=== PATIENT | male | born 1990 | race Caucasian/White ===

== ENCOUNTER 2016-08-18 20:28 | Emergency (ER) | payer MEDICAID, OTHER ==
[~2016-08-18] VITALS: Ht 182.9 cm; Wt 103.3 kg
[~2016-08-18 20:28] MED LIST: ALBU8I INH; BENZ100 PO; LORA10TA PO; PRED50 PO
[2016-08-18 20:35] VITALS: BP 136/97; PULSE 111; RESP 18; TEMP 98.4; O2SAT 96
--- NOTE | 2016-08-18 20:51 | PD ---
HPI Chief Complaint: Cold / Flu Symptoms Time Seen by Provider: 20:51 Travel History International Travel<30 days: No Contact w/Intl Traveler<30days: No Traveled to known affect area: No History of Present Illness HPI 26-year-old male presents the emergency Department with sudden onset head congestion, sore throat, postnasal drip, posttussive emesis 1, and chest congestion and wheezing and shortness of breath. Patient states he felt fine yesterday but today scattered all symptoms as stated. Patient has had chills but denies specific fever. Patient has no nausea decreased appetite and one episode of emesis of thick mucus. Patient states his cough is productive of yellow-green sputum. Patient also states head congestion and headache with pressure behind both eyes. Throat is sore with postnasal drip noted. Patient is a smoker relates pack of cigarettes per day. He has no known drug allergies. PFSH Past Medical History Asthma: No Cardiovascular Problems: No Neurologic: No Respiratory: No Influenza Vaccination: No Social History Alcohol Use: No Tobacco Use: Yes (1 06/25 ppd) Substance Use: No Allergies-Medications (Allergen,Severity, Reaction): Coded Allergies: No Known Allergies (Verified , 08/18/16) Reported Meds & Prescriptions Reported Meds & Active Scripts Active No Active Prescriptions or Reported Medications Review of Systems Except as stated in HPI: all other systems reviewed are Neg General / Constitutional: Positive: Chills, No: Fever Eyes: No: Visual changes HENT: Positive: Headaches, Sore Throat, Rhinitis, Rhinorrhea, Congestion, No: Nosebleed, Neck Stiffness, Neck Pain, Gingival Bleeding, Dental Difficulties, Ear Discharge, Earache Cardiovascular: Positive: Chest Pain or Discomfort Respiratory: Positive: Cough, Shortness of Breath, Wheezing, No: Sneezing, Orthopnea, Hemoptysis, Stridor, Night Sweats, Pleuritic Pain Gastrointestinal: Positive: Vomiting, No: Nausea, Diarrhea, Abdominal Pain Genitourinary: No: Dysuria Musculoskeletal: No: Pain Skin: No Rash Neurologic: No: Weakness Psychiatric: No: Depression Endocrine: No: Polydipsia Hematologic/Lymphatic: No: Easy Bruising Physical Exam Narrative GENERAL: Patient appears in no acute distress. Patient does appear ill but not septic. SKIN: Warm and dry. Mild pallor. Normal turgor. HEAD: Atraumatic. Normocephalic. Patient has moderate sinus tenderness with palpation to maxillary sinuses bilaterally. EYES: Pupils equal and round. No scleral icterus. No injection or drainage. ENT: No nasal bleeding or discharge. Mucous membranes pink and moist. Pharynx appears somewhat injected with erythema and cobblestoning with postnasal drip present. NECK: Trachea midline. No JVD. Supple nontender without significant lymphadenopathy. CARDIOVASCULAR: Regular rate and rhythm. RESPIRATORY: No accessory muscle use. Rhonchi and wheezes noted in the left lower lobe to auscultation. Breath sounds equal bilaterally. GASTROINTESTINAL: Abdomen soft, non-tender, nondistended. Hepatic and splenic margins not palpable. MUSCULOSKELETAL: Extremities without clubbing, cyanosis, or edema. No obvious deformities. NEUROLOGICAL: Awake and alert. No obvious cranial nerve deficits. Motor grossly within normal limits. Five out of 5 muscle strength in the arms and legs. Normal speech. PSYCHIATRIC: Appropriate mood and affect; insight and judgment normal. Data Data Last Documented VS Vital Signs Date Time Temp Pulse Resp B/P Pulse Ox O2 Delivery O2 Flow Rate FiO2 08/18/16 20:35 98.4 111 18 136/97 96 Orders Chest, Pa & Lat (08/18/16 20:56) Albuterol-Ipratropium Neb (Duoneb Neb) (08/18/16 21:00) MDM Medical Decision Making Medical Screen Exam Complete: Yes Emergency Medical Condition: Yes Differential Diagnosis Sinusitis. Bronchitis. Pneumonia. Wheezing. Narrative Course Patient is medically stable at time of exam. Chest x-ray PA and lateral are ordered. DuoNeb 1 is ordered. Chest x-ray is negative for acute infiltrate per radiologist. Patient is given prednisone 60 mg by mouth. Patient discharged home on prednisone 20 mg twice a day for 5 days. Patient is given albuterol metered-dose inhaler 2 puffs every 4-6 hours when necessary wheezing. Patient given azithromycin 500 mg daily for 3 days. #3. Patient is strongly encouraged to quit smoking immediately. Patient is to follow-up with his primary care physician if symptoms do not improve or worsen as discussed. Patient may return to emergency Department with worsening symptoms as needed. Diagnosis Primary Impression: Acute wheezy bronchitis Referrals: Primary Care Physician Patient Instructions: Acute Bronchitis (ED), Cigarette Smoking and Your Health (GEN), General Instructions, How to Use a Metered-Dose Inhaler (ED), Wheezing ( ED) Additional Instructions: DuoNeb 1 is ordered. Chest x-ray is negative for acute infiltrate per radiologist. Patient is given prednisone 60 mg by mouth. Patient discharged home on prednisone 20 mg twice a day for 5 days. Patient is given albuterol metered-dose inhaler 2 puffs every 4-6 hours when necessary wheezing. Patient given azithromycin 500 mg daily for 3 days. #3. Patient is strongly encouraged to quit smoking immediately. Patient is to follow-up with his primary care physician if symptoms do not improve or worsen as discussed. Patient may return to emergency Department with worsening symptoms as needed. Med/Other Pt SpecificInfo: Prescription(s) given Scripts No Active Prescriptions or Reported Meds Disposition: DISCHARGE HOME Condition: Stable Mikel Fuller Aug 18, 2016 20:51
[2016-08-18] MEDS ORDERED: RESP: ALBUTEROL 2.5 MG/IPRATROPIUM 0.5 MG NEB (SCH) INH ONE (21:00)
--- NOTE | 2016-08-18 21:15 | RADHPO ---
EXAM DATE/TIME: 08/18/2016 20:59 [facility] COMPARISON: No previous studies available for comparison. INDICATIONS : Shortness of breath with a cough. MEDICAL HISTORY : None. SURGICAL HISTORY : None. ENCOUNTER: Initial ACUITY: 1 day PAIN SCORE: 7/10 LOCATION: Bilateral chest FINDINGS: PA and lateral views of the chest demonstrate the lungs to be symmetrically aerated without evidence of mass, infiltrate or effusion. The cardiomediastinal contours are unremarkable. Osseous structure s are intact. CONCLUSION: No acute disease. Medardo Landry MD on August 18, 2016 at 21:13 Board Certified Radiologist. This report was verified electronically.
[2016-08-18] MEDS ORDERED: AZITHROMYCIN 250 MG TAB PO ONE (21:30)
[2016-08-18] MEDS ORDERED: predniSONE 20 MG TAB PO ONE (21:30)
[2016-08-18] MEDS ORDERED: VENTAER INH (21:49)
[2016-08-18] MEDS ORDERED: AZIT500T2 PO (21:49)
[2016-08-18] MEDS ORDERED: PRED20 PO (21:49)
== END 2016-08-18 21:57 | disposition home or self-care (01) ==
LOC: PHEFT 20:28
DX: J20.9 Acute bronchitis, unspecified (principal); F17.210 Nicotine dependence, cigarettes, uncomplicated
CPT/HCPCS: 71020; 94664; 99283; J7512